=== PATIENT | female | born 1985 | race Caucasian/White ===

== ENCOUNTER 2017-05-03 19:52 | Emergency (ER) | payer MEDICAID, OTHER ==
[~2017-05-03] VITALS: Ht 167.6 cm; Wt 65.0 kg
[2017-05-03 19:55] VITALS: BP 138/78; PULSE 109; RESP 16; O2SAT 100
--- NOTE | 2017-05-03 21:08 | ED.REPORT ---
HPI-Abd Pain F Under 38 Date of Service May 03, 2017 ED Provider: Patient is a 31-year-old female with diabetes mellitus type I who presents to the emergency department with a 2 day history of itching and burning in her vaginal area. She has relatively frequent yeast infections the most recent of which was a couple months ago. Her pain acutely worsened last night. It is constant, and sharp in her labial area. She has associated redness and swelling. She took 600 mg ibuprofen 2 hours prior to arrival without relief. She is having burning with urination on her labial area, and states that it feels like acid. Additionally she tried to shower but it was too painful. She is experiencing some shortness of breath due to pain. She is not having any fever, chills, headache, abdominal pain, or swelling in her legs. Nursing Notes Stated Complaint: POSSIBLE SEVERE YEAST INFECTION Chief Complaint: Female Abdominal Pain Nursing Notes Reviewed: Yes Allergies: Coded Allergies: Penicillins (Verified Allergy, Severe, 07/22/09) codeine (Verified Allergy, Severe, 07/22/09) Scheduled Acyclovir (Acyclovir) 400 Mg Tablet 400 MG PO TID Scheduled PRN Tramadol (Tramadol) 50 Mg Tablet 100 MG PO Q6H PRN PRN For Pain General Time Seen by MD: 21:08 Chief Complaint Pelvic pain Hx Obtained From: Patient Arrived By: Walk-in Past Medical History Past Medical History Type I diabetes mellitus Past Surgical History Denies Smoking History Current Every Day Smoker (1/2 pack) Social History Alcohol Use: Denies alcohol use Drug Use: Denies drug use Ambulatory Status Independent Review of Systems A comprehensive review of systems was conducted with the patient and found to be negative except as above in the History of Present Illness. Physical Exam Initial Vital Signs Vital Signs (First) Date Time Temp Pulse Resp B/P Pulse Ox O2 Delivery O2 Flow Rate FiO2 05/03/17 19:55 36.5 109 16 138/78 100 Room Air Initial VS: Reviewed Head / Eyes: Atraumatic, Normocephalic ENT: Mucous membranes moist, Conjunctiva normal Neck: Supple, Non-tender Extremities: Vascular intact, Neuro intact, No swelling, No tenderness Skin: Warm, Dry, No cyanosis Neurologic: Alert, Oriented, Nonfocal Psychiatric: Mood/affect normal, Behavior normal, Normal thought content General/Constitutional: Awake, Alert Distress / Hydration: Positive: Distress moderate Respiratory / Chest: Breath sounds NL, Breath sounds = bilat, No respiratory distress, No rales, No rhonchi, No wheezing Cardiovascular: Regular rhythm Heart Rate / Rhythm: Positive: Tachycardia (mildly, improved with pain medicine ) Abdomen: Atraumatic, Soft enlarged tender inguinal lymph node on right, palpable nontender inguinal lymph nodes on left Interpretation & Diagnostics Lab Results Interpretation Test 05/03/17 21:18 05/03/17 21:57 Urine Color Yellow (YELLOW) Urine Appearance Hazy (CLEAR,HAZY) Urine pH 6.5 (5.0-8.0) Urine Specific [place] 1.015 (1.003-1.035) Urine Protein Negativemg/dL (NEG,TRACE) Urine Glucose (UA) 1000mg/dL (NEGATIVE) Urine Ketones Negativemg/dL (NEGATIVE) Urine Occult Blood Trace (NEGATIVE) Urine Nitrite Negative (NEGATIVE) Urine Bilirubin Negative (NEGATIVE) Urine Urobilinogen Normalmg/dL (NORMAL) Urine Leukocyte Esterase Trace (NEGATIVE) Urine RBC 0-2/hpf (0-2) Urine WBC 6-10/hpf (0-5) Urine Epithelial Cells Moderate/hpf (NONE-MOD) Urine Crystals None seen (NONE SEEN) Urine Bacteria Few/hpf (NONE-FEW) Urine Hyaline Casts None/lpf (NONE) Urine Granular Casts None seen (NONE SEEN) Urine Waxy Casts None seen (NONE SEEN) Urine Red Blood Cell Casts None seen (NONE SEEN) Urine White Blood Cell Casts None seen (NONE SEEN) Urine Mucus None seen (None Seen) Urine Trichomonas None seen (NONE SEEN) Urine Yeast None (NONE SEEN) Urinalysis Comment None Urine Culture Reflexed Indicated Lab Results Interpretation: Wet mount positive for moderate yeast, no clue cells, no Trichomonas. HSV, GC, and chlamydia still pending Re-Eval/Medical Decision Med Decision/Clinical Course Patient is a 31-year-old female with diabetes mellitus type I who presents to the emergency department with a 2 day history of itching and burning in her vaginal area with acutely worsening symptoms last night. She is having burning pain. Wet mount positive with moderate yeast, negative for Trichomonas and clue cells. On physical examination patient appears to have blisterlike lesion raising suspicion for primary herpetic outbreak. Patient has enlarged and tender inguinal lymph node on right side. Patient was in excruciating pain, she had some relief with tramadol and topical Xylocaine treatment. She was treated with fluconazole and given first dose acyclovir along with prescription to continue. Gonorrhea Chlamydia tests were additionally performed but results are pending at time of discharge. Patient was discharged home in stable condition, her questions were answered. She is to follow-up with her primary care provider for lab results. Counseled Regarding: Diagnosis, Lab results, Need for follow-up, When/why to return to ED Discharge & Departure Shift Change Sign-Out Response to Therapy: Improved Primary Impression: Yeast infection Additional Impression: Primary genital herpes simplex infection Disposition: Home Discharge Condition All VS Reviewed: Yes Condition: Stable Patient Instructions: Vulvovaginal Candidiasis (ED) Additional Instructions: Thank you for entrusting us with your care today. You have a yeast infection. You have been treated with fluconazole and given viscous lidocaine for topical treatment of the pain. You have lesions that look like they may be herpes. The lab test for this takes time to come back. I recommend taking acyclovir 400 mg 3 times a day for 10 days. Please follow-up with your primary care provider this week. He can get the results for the lab test to determine if it is necessary to continue with treatment for herpes. It is important to continue working on keeping your blood sugars in a reasonable range as well. You may take ibuprofen and Tylenol. You may take 600 mg ibuprofen every 6-8 hours. You may take 2 tablets of Tylenol every 6-8 hours as well You can alternate these 2 so you are taking a medication for pain every 3-4 hours if needed. Return to the emergency department with fever, chills, or vomiting without the ability to keep fluids down for 48 hours. Referrals: Steffen Lopez MD (PCP) Attending Statment As attending of record for this patient, I conducted an independent history and physical exam, and agree with the documentation as per the resident note, and as amended. copies to: Steffen Lopez MD, Christopher W MD May 03, 2017 21:08 Marian Barnes DO May 03, 2017 21:32
[2017-05-03] MEDS ORDERED: Lidocaine 2% 5 mL Urojet Topical Jelly Syringe MUC_MEMBRM ONE ×2 (21:30→23:45)
[2017-05-03 21:36] LABS: APPEARANCE,URINE HAZY (CLEAR,HAZY); COLOR,URINE YELLOW (YELLOW); OCCULT BLOOD,URINE TRACE (NEGATIVE); PH,URINE 6.5 (5.0-8.0); UROBILINOGEN,URINE NORMAL (NORMAL)
[2017-05-03 22:49] VITALS: BP 125/84; PULSE 97; RESP 20; O2SAT 98
[2017-05-04] MEDS ORDERED: ACYC400T2 PO (00:03)
[2017-05-04] MEDS ORDERED: Lidocaine 2% 5 mL Topical Jelly TOPICAL ONE (00:15)
[2017-05-04] MEDS ORDERED: Acyclovir 400 mg Tablet PO ONE (00:25)
[2017-05-04] MEDS ORDERED: TRAM50TA2 PO (00:34)
[2017-05-04 00:57] VITALS: BP 122/74; PULSE 102; RESP 18; O2SAT 97
== END 2017-05-04 00:58 | disposition home or self-care (01) ==
LOC: SED 19:52
DX: B37.3 Candidiasis of vulva and vagina (principal); B00.9 Herpesviral infection, unspecified; E10.9 Type 1 diabetes mellitus without complications; F17.200 Nicotine dependence, unspecified, uncomplicated; Z88.0 Allergy status to penicillin; Z88.5 Allergy status to narcotic agent
CPT/HCPCS: 81000; 87086; 87088; 87140; 87147; 87210; 87255; 87491; 87591; 96372; 99284; J1885